=== PATIENT | female | born 1940 | race Caucasian/White ===

== ENCOUNTER → 2020-08-16 11:01 | Outpatient (BNVA) | payer MEDICARE, MEDICAID, SELFPAY | PROVIDERS: Family Provider Family Medicine; PCP Family Medicine; Visit Provider Nurse Practitioner Family | DX: I10 Essential (primary) hypertension (principal); E11.9 Type 2 diabetes mellitus without complications; E78.5 Hyperlipidemia, unspecified; G31.83 Neurocognitive disorder with Lewy bodies | CPT/HCPCS: 80053; 80061; 83036; 84439; 84443 ==

== ENCOUNTER 2021-04-15 17:54 | Emergency (ER) | payer MEDICARE, MEDICAID, SELFPAY ==
[2021-04-15 19:15] VITALS: BP 143/85; PULSE 67; RESP 18; TEMP 36.7; O2SAT 96; BMI 27.8
[2021-04-16 01:24] VITALS: BP 128/85; PULSE 70; O2SAT 93
[2021-04-16 01:28] LABS: Basophils # 0.1 10^3/uL (0.0-0.1); Basophils % 0.9 %; Eosinophils # 0.2 10^3/uL (0.0-0.8); Eosinophils % 2.3 %; Hematocrit 42.6 % (37.0-47.0); Hemoglobin 14.5 g/dL (11.5-15.3); Lymphocytes # 2.5 10^3/uL (0.8-4.8); Lymphocytes % 30.7 %; Mean Corpuscular Hemoglobin 29.2 pg (28.0-34.0); Mean Corpuscular Volume 85.7 fL (81-99); Mean Platelet Volume 9.3 fL (7.4-10.4); Monocytes # 0.8 10^3/uL (0.2-0.9); Monocytes % 10.4 %; Neutrophils # 4.46 10^3/uL (1.8-7.7); Neutrophils % 55.1 %; Nucleated Red Blood Cells % 0 %; Platelet Count 324 10^3/cmm (130-400); Red Blood Count 4.97 10^6/uL (4.1-5.3); Red Cell Distribution Width 12.4 % (12.1-15.1); White Blood Count 8.1 10^3/uL (4.0-10.0)
[2021-04-16 01:43] LABS: Alanine Aminotransferase 17 U/L (0-33); Albumin Level 4.1 g/dL (3.5-5.2); Alkaline Phosphatase 113 IU/L (35-105); Anion Gap 16.2 (5-19); Aspartate Amino Transferase 15 U/L (0-32); Blood Urea Nitrogen 10 mg/dL (8-23); Calcium 9.2 mg/dL (8.5-10.5); Carbon Dioxide 24 mmol/L (22-29); Chloride 91 mmol/L (98-107); Globulin 3.2 g/dL (1.3-4.6); Glucose 117 mg/dL (65-115); Osmolality Calculated 264 mOsm/kg (285-295); Potassium 4.2 mmol/L (3.5-5.1); Sodium 127 mmol/L (136-145); Total Bilirubin 0.6 mg/dL (0.15-1.2); Total Protein 7.3 g/dL (6.6-8.7)
--- NOTE | 2021-04-16 02:03 | CTR_ITS ---
PROCEDURE INFORMATION: Exam: CT Abdomen And Pelvis With Contrast Exam date and time: 04/16/2021 2:03 AM Age: 80 years old Clinical indication: Abdominal pain; Localized; Right; Prior surgery; Surgery type: Gb. Appy. ; Patient HX: RT sided abd pain. Patient states having rectal/vaginal bleeding. ; Additional info: Rlq pain TECHNIQUE: Imaging protocol: Computed tomography of the abdomen and pelvis with contrast. Radiation optimization: All CT scans at this facility use at least one of these dose optimization techniques: automated exposure control; mA and/or kV adjustment per patient size (includes targeted exams where dose is matched to clinical indication); or iterative reconstruction. Contrast material: OMNI 300; Contrast volume: 95 ml; Contrast route: INTRAVENOUS (IV); COMPARISON: CR (CHEST, ) 04/16/2021 2:19 AM RADIATION DOSE METRICS: Total DLP (mGy-cm): 1274.61 FINDINGS: Lungs: The lung bases are clear. No effusion Liver: There is fatty infiltration of the liver. Gallbladder and bile ducts: There has been a cholecystectomy. Pancreas: There are couple of coarse calcifications in the head of the pancreas which are nonspecific but may be secondary to prior pancreatitis. 8 mm pancreatic tail cyst. Spleen: 5 mm low-attenuation lesion of the spleen, likely a cyst. Adrenal glands: Adrenals are normal. Kidneys and ureters: Normal. No hydronephrosis. Stomach and bowel: Diverticulosis without diverticulitis. Appendix: The appendix is not positively identified. However, no secondary changes of appendicitis are present. Intraperitoneal space: Unremarkable. No free air. No significant fluid collection. Vasculature: Unremarkable. No abdominal aortic aneurysm. Lymph nodes: Unremarkable. No enlarged lymph nodes. Urinary bladder: Unremarkable as visualized. Reproductive: Unremarkable as visualized. Bones/joints: Unremarkable. No acute fracture. Soft tissues: Fat containing umbilical hernia. CT/CT abdomen pelvis w con* [id number] IMPRESSION: 1. Fatty infiltration of the liver. 2. 8 mm pancreatic tail cyst.Reimaging every 2 years for 4 years is recommended. (Reference: Emely, 2017) 3. Fat containing umbilical hernia. 4. Diverticulosis without diverticulitis. 5. The appendix is not positively identified. However, no secondary changes of appendicitis are present. REFERENCES: Emely SON, et al. Management of Incidental Pancreatic Cysts: A White Paper of the ACR Incidental Findings Committee. J Am Sarah Radiol. 2017;14(7):911-923. Radiation Dose CTDIVOL = (mGy): DLP = 1274.61 (mGy-cm)
--- NOTE | 2021-04-16 02:03 | CTR_ITS ---
PROCEDURE INFORMATION: Exam: CT Head Without Contrast Exam date and time: 04/16/2021 2:03 AM Age: 80 years old Clinical indication: Injury or trauma; Blunt trauma (contusions or hematomas); Patient HX: Fall two days ago. Bruise near posterior vertex. History of lewy body dementia. ; Additional info: Fall 2 days ago with head injury TECHNIQUE: Imaging protocol: Computed tomography of the head without contrast. Radiation optimization: All CT scans at this facility use at least one of these dose optimization techniques: automated exposure control; mA and/or kV adjustment per patient size (includes targeted exams where dose is matched to clinical indication); or iterative reconstruction. COMPARISON: 1. MRI Head w/wo* [id number] 2017-05-03 13:[address] head wo con* [id number] 2016-09-13 13:09 RADIATION DOSE METRICS: Total DLP (mGy-cm): 1277.83 FINDINGS: Brain: Diffuse severe cerebral volume loss. Diffuse moderate to severe patchy low attenuation in the white matter compatible with chronic small vessel ischemic disease. No midline shift, mass, fluid collection, or evidence of hemorrhage. Scattered chronic appearing lacunae in the deep pillai structures and/or periventricular white matter. Cerebral ventricles: Ventricular enlargement proportional to volume loss. Paranasal sinuses: Visualized sinuses are unremarkable. No fluid levels. Mastoid air cells: Visualized mastoid air cells are well aerated. Bones/joints: Unremarkable. No acute fracture. Soft tissues: Unremarkable. CT/CT head wo con* [id number] IMPRESSION: Moderate to severe involutional changes, no acute intracranial abnormality. Radiation Dose CTDIVOL = (mGy): DLP = 1277.83 (mGy-cm)
--- NOTE | 2021-04-16 02:16 | ED_ITS ---
HPI - General Adult General: Chief complaint: Vaginal Bleeding Stated complaint: VAGINAL BLEEDING Time Seen by Provider: 04/16/21 01:09 History of Present Illness: HPI narrative: 80-year-old female with a history of dementia. She presents with a couple of different complaints. The first is that of a fall 2 days ago where she injured her head. She has some bruising to her occiput she also complains of right-sided abdominal pain with bleeding internally is what she says. I believe this is the way she feels. She is also had a bit of a cough. She states she has had a fever, although has not been measured. Onset (ago): day(s) Location: head and abdomen Radiation: non-radiation Severity: moderate Quality: aching Pain Consistency: intermittent Relieving factors: none Exacerbating factors: movement Associated symptoms: Reports confusion, cough, fevers/chills, headache(s), nausea and vomiting; Deny chest pain or dyspnea Review of Systems Card: Denies: chest pain Resp: Denies: dyspnea GI: Reports: nausea and vomiting Neuro: Reports: headache(s) and confusion PFSH ED PFSH: Medical History Anxiety Dyslipidemia Hypertension Lewy body Parkinson disease Type 2 diabetes mellitus without complication, without long-term current use of insulin Social History Smoking and tobacco status: never smoked Alcohol intake: current Alcohol intake frequency: holidays/special occasions only Alcohol type: wine Physical Exam Const: EXAM LIMITATIONS: altered mental status GENERAL APPEARANCE: cooperative and frail appearing ORIENTATION/CONSCIOUSNESS: Yes awake, Yes oriented to person, Yes oriented to place and Yes confused; not oriented to time HENMT: HEAD & SCALP: contusion (Occiput with some mild swelling) Eye: COMMON NORMALS: Equal, round and reactive pupils present CONJUNCTIVA: Yes conjunctival abnormal (Bilateral injection) PUPIL: Yes Equal, round and reactive pupils present Chest: COMMONS NORMALS: normal inspection of the chest Resp: COMMON NORMALS: normal respiratory effort, No use of accessory muscles and clear to auscultation bilaterally AUSCULTATION: clear to auscultation bilaterally Cardio: COMMON NORMALS: regular rate and regular rhythm RATE: regular rate RHYTHM: regular rhythm GI: COMMON NORMALS: Soft to palpation PALPATION: Yes Soft to palpation, Yes Tenderness to palpation present (GI) Details: RLQ and Yes Guarding due to palpation present (GI) Neuro: SENSORIUM/ORIENTATION: Yes oriented to person, Yes oriented to place and No oriented to time Course Vital Signs: Vital signs: Vital Signs Temperature 98.0 F 04/15/21 19:15 Pulse Rate 84 04/16/21 05:29 Respiratory Rate 18 04/16/21 05:29 Blood Pressure 168/110 04/16/21 03:20 Pulse Oximetry 94 04/16/21 05:29 MDM - General Adult MDM Narrative: Medical decision making narrative: The patient denied vaginal bleeding. She states that she was bleeding internally. She has tenderness in her right lower quadrant. CT is negative for any acute process. She does have a mild urinary tract infection. We will treat this. Her vitals been good throughout her stay. She does have a history of dementia, and is a poor historian. Lab Data: Labs: Lab Results 04/16/21 04/16/21 04/16/21 Range/Units 01:20 01:20 01:20 WBC 8.1 (4.0-10.0) 10^3/ uL RBC 4.97 (4.1-5.3) 10^6/u L Hgb 14.5 (11.5-15.3) g/dL Hct 42.6 (37.0-47.0) % MCV 85.7 (81-99) fL MCH 29.2 (28.0-34.0) pg MCHC 34.0 (30.0-36.0) g/dL RDW 12.4 (12.1-15.1) % Plt Count 324 (130-400) 10^3/c mm MPV 9.3 (7.4-10.4) fL Neut % (Auto) 55.1 % Lymph % (Auto) 30.7 % [place] % (Auto) 10.4 % Eos % (Auto) 2.3 % Baso % (Auto) 0.9 % Neut # (Auto) 4.46 (1.8-7.7) 10^3/u L Lymph # (Auto) 2.5 (0.8-4.8) 10^3/u L [place] # (Auto) 0.8 (0.2-0.9) 10^3/u L Eos # (Auto) 0.2 (0.0-0.8) 10^3/u L Baso # (Auto) 0.1 (0.0-0.1) 10^3/u L Nucleated RBC % (a uto) 0 % Nucleated RBCs # 0.0 /100WBC Sodium 127 L (136-145) mmol/L Potassium 4.2 (3.5-5.1) mmol/L Chloride 91 L (98-107) mmol/L Carbon Dioxide 24 (22-29) mmol/L Anion Gap 16.2 (5-19) BUN 10 (8-23) mg/dL Creatinine 0.7 (0.5-0.9) mg/dL GFR Calculation Not Reportable Glucose 117 H (65-115) mg/dL Calculated Osmolal ity 264 L (285-295) mOsm/k g Calcium 9.2 (8.5-10.5) mg/dL Total Bilirubin 0.6 (0.15-1.2) mg/dL AST 15 (0-32) U/L ALT 17 (0-33) U/L Alkaline Phosphata se 113 H (35-105) IU/L Total Protein 7.3 (6.6-8.7) g/dL Albumin 4.1 (3.5-5.2) g/dL Globulin 3.2 (1.3-4.6) g/dL Urine Color Yellow (Yellow) Urine Appearance Clear (CLEAR) Urine pH 5 (5-7) Ur Specific Gravit y 1.005 (1.005-1.030) Urine Protein Neg (Negative) Urine Glucose (UA) Norm (Normal) Urine Ketones 1+ H (Negative) Urine Blood Neg (Negative) Urine Nitrate Negative (Negative) Urine Bilirubin Neg (Negative) Urine Urobilinogen Norm (Negative) mg/dL Ur Leukocyte [place] Trace H (Negative) Urine RBC 0-4 H (0-2) /hpf Urine WBC 10-15 H (0-5) /hpf Ur Squamous Epith Cells 5-10 H (0-5) /hpf Amorphous Sediment Not Reportable Urine Bacteria Trace (NONE) /hpf Urine Mucus Trace /hpf Discharge Plan Discharge Patient Disposition: Home Clinical Impression: Abdominal pain Qualifiers: Abdominal location: right lower quadrant Qualified Code(s): R10.31 - Right lower quadrant pain Urinary tract infection Qualifiers: Urinary tract infection type: acute cystitis Hematuria presence: without hematuria Qualified Code(s): N30.00 - Acute cystitis without hematuria Condition: Stable Prescriptions: New Macrobid 100 mg capsule 100 mg PO BID 7 Days Qty: 14 RF: 0 No Action aspirin [Adult Aspirin Regimen] 81 mg tablet,delayed release (DR/EC) 81 mg PO DAILY RF: 0 glipizide 5 mg tablet 5 mg PO DAILY Qty: 90 RF: 3 citalopram 20 mg tablet 20 mg PO DAILY RF: 0 amlodipine 10 mg tablet See Rx Instructions .ROUTE .COMPLEX Qty: 30 RF: 5 atorvastatin 40 mg tablet See Rx Instructions .ROUTE .COMPLEX Qty: 90 RF: 3 clopidogrel 75 mg tablet 75 mg PO DAILY Qty: 30 RF: 6 metoprolol tartrate 25 mg tablet See Rx Instructions .ROUTE .COMPLEX Qty: 60 RF: 6 memantine 10 mg tablet 10 mg PO BID Qty: 60 RF: 0 metformin 1,000 mg tablet 1,000 mg PO BID Qty: 180 RF: 0 donepezil 10 mg tablet See Rx Instructions .ROUTE .COMPLEX Qty: 30 RF: 5 quetiapine 200 mg tablet See Rx Instructions .ROUTE .COMPLEX Qty: 60 RF: 3 quetiapine 50 mg tablet See Rx Instructions .ROUTE .COMPLEX Qty: 30 RF: 3 Discharge Orders: Discharge ED (Routine); Ordered 04/16/21 Ordered By: Santino Mukherjee Referrals: Raj Mascorro DO [Primary Care Provider] - 4-7 days Discharge Activity: Increase activity as tolerated Patient Instructions: Abdominal Pain (ED), Opioid Safety Activity Restrictions/Additional Instructions: Return for worsening pain despite treatment, fever greater than 100, worsening mental status, any other concerning problems. Coding Level of Care Code ED Perfect Binder Operator for Chg Fwd Exam Detailed
[2021-04-16] MEDS: iohexol 300 mg/mL 100 mL Btl IV (02:39)
[2021-04-16 03:20] VITALS: BP 168/110; PULSE 83; RESP 18; O2SAT 93
--- NOTE | 2021-04-16 03:22 | XRR_ITS ---
PROCEDURE INFORMATION: Exam: XR Chest Exam date and time: 04/16/2021 3:22 AM Age: 80 years old Clinical indication: Cough and fever; Patient HX: Cough/fever TECHNIQUE: Imaging protocol: XR of the chest. Views: 1 view. COMPARISON: CR Chest 1 [place] [id number] 09/13/2016 12:16 PM FINDINGS: Lungs: There are low lung volumes. Otherwise, the lungs are clear. Pleural spaces: Unremarkable. No pleural effusion. No pneumothorax. Heart/Mediastinum: There is mild cardiomegaly. Bones/joints: Unremarkable. XR/XR chest 1V portable [id number] IMPRESSION: 1. Mild cardiomegaly. 2. There are low lung volumes. Otherwise, the lungs are clear.
[2021-04-16 03:53] LABS: Add Urine Microscopic? YES; Bilirubin Urine Neg (Negative); Blood Urine Neg (Negative); Glucose Urine UA Norm (Normal); Ketones Urine 1+ (Negative); Leukocyte Esterase Urine Trace (Negative); Nitrate Urine Negative (Negative); Protein Urine Neg (Negative); Specific Gravity, Urine 1.005 (1.005-1.030); Urine Appearance Clear (CLEAR); Urine Color Yellow (Yellow); Urobilinogen Urine Norm (Negative); pH Urine 5 (5-7)
[2021-04-16 03:55] LABS: Add Urine Culture? No; Bacteria Urine TRACE /hpf; Mucus Urine TRACE /hpf; RBC Urine 0-4 /hpf (0-2)
[2021-04-16 05:28] VITALS: PULSE 83; O2SAT 93
[2021-04-16 05:29] VITALS: PULSE 84; RESP 18; O2SAT 94
[2021-04-16] MEDS: nitrofurantoin SR (BID) 100 mg Capsule PO (05:30)
== END 2021-04-16 06:20 | disposition home or self-care (01) ==
PROVIDERS: Nurse Practitioner Family; Emergency Provider Emergency Medicine; PCP Family Medicine
DX: N30.00 Acute cystitis without hematuria (principal); R10.31 Right lower quadrant pain; E78.5 Hyperlipidemia, unspecified; I10 Essential (primary) hypertension; E11.9 Type 2 diabetes mellitus without complications; G31.83 Neurocognitive disorder with Lewy bodies; F02.80 Dementia in other diseases classified elsewhere, unspecified severity, without behavioral disturbance, psychotic disturbance, mood disturbance, and anxiety; Z79.84 Long term (current) use of oral hypoglycemic drugs
CPT/HCPCS: 70450; 71045; 74177; 80053; 81001; 85025; 99284; Q9967